=== PATIENT | female | born 1990 | race Two or more races ===

== ENCOUNTER 2025-03-18 12:13 | Observation (INO) | payer OTHER ==
[~2025-03-18] VITALS: Ht 167.6 cm; Wt 83.9 kg
--- NOTE | 2025-03-18 13:46 | DVH ---
OB ULTRASOUND, LIMITED CLINICAL INDICATION: vaginal bleeding TECHNIQUE: Multiple grayscale ultrasound and M-mode images were obtained of the pelvis for evaluation of intrauterine . COMPARISON: None FINDINGS: A single living fetus is seen in vertex presentation. Biparietal diameter: 5.44 cm (22 weeks, 4 days) Head Circumference: 21.07 cm (23 weeks, 1 days) Abdomen Circumference: 17.16 cm (22 weeks, 1 days) Femur Length: 4.02 cm (23 weeks, 0 days) Estimated weight: 516 grams (+/- 77 grams). 1 lb 2 oz Placenta: Posterior, grade 1. Amniotic fluid: Visibly normal. heart rate: 151 beats/min. 4-chamber heart, stomach, bilateral kidneys, and urinary bladder grossly unremarkable. Cervix is 3.4 cm and closed Heterogeneous mixed echogenicity structure posterior to the placenta along the margin measuring 7.7 x 6.4 x 4.5 cm. IMPRESSION: 1. Single living intrauterine with an estimated gestational age of 22 weeks, 5 days, corresponding to an estimated date of delivery of 07/17/2025. 2. Heterogeneous mixed echogenicity structure posterior to the placenta along the margin which could reflect a blood clot /hematoma in the setting of placental abruption. Close attention on follow-up is recommended.
[2025-03-18] MEDS ORDERED: PREN-96 PO (14:33)
== END 2025-03-18 14:50 | disposition home or self-care (01) ==
LOC: LDRP 12:13
PROVIDERS: ADMIT Obstetrics & Gynecology; ATTEND Obstetrics & Gynecology
DX: O46.92 Antepartum hemorrhage, unspecified, second trimester (principal); Z3A.22 22 weeks gestation of pregnancy; Z98.890 Other specified postprocedural states
CPT/HCPCS: 76805; 81002; 94760; A4649; G0378; 59025